=== PATIENT | male | born 1960 ===

== ENCOUNTER 2018-11-09 02:19 | Outpatient (CLI) | payer BC | END 2018-11-09 23:59 | disposition home or self-care (01) | LOC: DIABETIC 02:19 | PROVIDERS: ATTEND Student in an Organized Health Care Education/Training Program | DX: E11.65 Type 2 diabetes mellitus with hyperglycemia (principal); Z79.84 Long term (current) use of oral hypoglycemic drugs; Z79.899 Other long term (current) drug therapy | CPT/HCPCS: G0108 ==